=== PATIENT | female | born 1995 | race Caucasian/White ===

== ENCOUNTER 2016-02-27 22:59 | Emergency (ER) | payer BC | END 2016-02-28 01:05 | disposition left against medical advice (07) | LOC: JER 22:59 | DX: Z53.21 Procedure and treatment not carried out due to patient leaving prior to being seen by health care provider (principal) | CPT/HCPCS: 99281-25 ==

== ENCOUNTER 2016-02-28 00:05 | Emergency (ER) | payer BC ==
[2016-02-28 00:14] VITALS: BP 125/76; PULSE 84; TEMP 99.3; BMI 17.2
--- NOTE | 2016-02-28 00:32 | PDOC ---
History of Present Illness - General Chief Complaint: Chest Pain Stated Complaint: CHEST HEAVINESS/LIGHTHEADED History Source: Patient Exam Limitations: No Limitations - History of Present Illness Initial Comments: 02/28/16 01:50 Has had 7 doses of Bactrim DS and felt some chest heaviness followed by some dizziness..... felt this may be an allergic reaction. She is a healthy 20 yo who is taking the bactrim for a skin infection on her right arm. Timing/Duration: 1 week Severity: mild Modifying Factors: worse with: other Associated Symptoms: denies: denies symptoms Past History - Past Medical History Allergies/Adverse Reactions: Allergies Allergy/AdvReac Type Severity Reaction Status Date / Time No Known Allergies Allergy Verified 01/09/15 15:03 Home Medications: Ambulatory Orders Sulfamethoxazole/Trimethoprim [Bactrim Ds Tablet] 1 each PO BID 02/28/16 Other medical history: DENIES - Psycho/Social/Smoking Cessation Hx Anxiety: No Suicidal Ideation: No Smoking History: Never smoked Review of Systems - Review of Systems Able to Perform ROS?: Yes Is the patient limited Cypriot proficient: No Constitutional: Yes: See HPI HEENTM: No: Symptoms Reported Respiratory: Yes: Other (Chest Heaviness) Cardiac (ROS): Yes: See HPI ABD/GI: No: Symptoms Reported : No: Symptoms Reported Musculoskeletal: No: Symptoms Reported Integumentary: Yes: See HPI Neurological: No: Symptoms reported Psychiatric: Yes: Anxiety Endocrine: No: Symptoms Reported Hematologic/Lymphatic: No: Symptoms Reported All Other Systems: Reviewed and Negative *Physical Exam - Vital Signs Last Vital Signs Temp Pulse Resp BP Pulse Ox 99.3 F 84 18 125/76 100 02/28/16 00:10 02/28/16 00:10 02/28/16 00:10 02/28/16 00:10 02/28/16 00:10 - Physical Exam Comments: 02/28/16 01:53 Anxious 21 yo NAD General Appearance: No: Apparent Distress HEENT: positive: EOMI, QUINCY, Normal ENT Inspection Neck: positive: Supple. negative: Tender Respiratory/Chest: positive: Lungs Clear, Normal Breath Sounds. negative: Chest Tender Cardiovascular: positive: Regular Rhythm, Regular Rate. negative: Murmur Gastrointestinal/Abdominal: positive: Normal Bowel Sounds, Flat, Soft. 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 *DC/Admit/Observation/Transfer Diagnosis at time of Disposition: Anxiety, Chest heaviness - Discharge Dispostion Disposition: HOME Condition at time of disposition: Good Admit: No - Patient Instructions Printed Discharge Instructions: DI for Anxiety -- Adult Additional Instructions: Karyn- All of your tests are normal. I believe this may be a little bit of anxiety. Keep taking the bactrim til it is gone. Return to us if any problems. See your regular doctor next week. Delgado- / Marvin Floyd
[2016-02-28] MEDS ORDERED: SODIUM CHLORIDE 1,000 ML IV STA (00:34)
[2016-02-28 01:18] LABS: BASOPHIL 0.5 % (0-2.0); EOSINOPHIL 0.3 % (0-4.5); MCH 28.7 pg (25.7-33.7); MCHC 32.7 g/dl (32.0-36.0); MEAN CELL VOLUME 87.8 fl (80-96); MEAN PLT VOLUME 9.4 fl (7.5-11.1); NEUTROPHILS 85.2 % (42.8-82.8); PLATELET COUNT 310 K/MM3 (134-434)
[2016-02-28 01:44] LABS: INR 1.05 (0.82-1.09)
[2016-02-28 01:47] LABS: D-DIMER < 200 ng/ml (<200-235)
[2016-02-28 01:56] LABS: ALBUMIN 4.8 g/dl (3.4-5.0); ALK PHOS 73 U/L (45-117); ANION GAP 13 (8-16); BILIRUBIN,TOTAL 0.4 mg/dL (0.2-1.0); CALCIUM 9.5 mg/dL (8.5-10.1); CO2 24 mmol/L (21-32); CREATININE 1.1 mg/dL (0.55-1.02); GLUCOSE,RANDOM 91 mg/dL (74-106); SGOT/AST 15 U/L (15-37); SGPT/ALT 24 U/L (12-78); TOT PROT 7.9 g/dl (6.4-8.2)
[2016-02-28 02:10] LABS: TROPONIN I < 0.02 ng/ml (0.00-0.05)
--- NOTE | 2016-03-06 10:28 | EKG ---
Test Reason : Blood Pressure : / mmHG Vent. Rate : 091 BPM Atrial Rate : 091 BPM P-R Int : 142 ms QRS Dur : 072 ms QT Int : 348 ms P-R-T Axes : 038 049 045 degrees QTc Int : 428 ms POOR DATA QUALITY, INTERPRETATION MAY BE ADVERSELY AFFECTED NORMAL SINUS RHYTHM NORMAL ECG NO PREVIOUS ECGS AVAILABLE Confirmed by ROXANNE ARAUJO MD ([id number]) on 03/06/2016 10:27:50 AM Referred By: MD RIVAS Confirmed By:ROXANNE ARAUJO MD
== END 2016-02-28 02:41 | disposition home or self-care (01) ==
LOC: FER 00:05
PROC: 3E0337Z Introduction of Electrolytic and Water Balance Substance into Peripheral Vein, Percutaneous Approach (ICD-10-PCS; principal; 2016-02-28)
DX: F41.9 Anxiety disorder, unspecified (principal); R07.89 Other chest pain
CPT/HCPCS: 36415; 71020-TC; 80053; 82550; 84484; 84703; 85025; 85379; 85610; 93005; 99283-25

== ENCOUNTER 2016-08-20 15:49 | Emergency (ER) | payer BC ==
[2016-08-20 15:53] VITALS: BP 120/82; PULSE 105; TEMP 98.6; BMI 20.2
--- NOTE | 2016-08-20 16:33 | PDOC ---
History of Present Illness - History of Present Illness Initial Comments: 08/20/16 16:38 The patient is a 21 year old female, with a significant past medical history of spider bite (last year), who presents to the emergency department with spider bite she obtained today. The patient presents with the spider in a plastic bag. The patient denies any symptoms, but reports feeling burning immediately after receiving the bite to her right posterior lateral thigh. She states she immediately sprayed the area with benadryl spray. She denies swelling or numbness. She denies bruising. She denies any other symptoms. She denies fever, chills, nausea, vomit, diarrhea and constipation. She denies dysuria, frequency, urgency and hematuria. Allergies: NKDA <Cuca Milton - Last Filed: 08/20/16 16:38> <Shannan العلي - Last Filed: 08/20/16 17:02> - General Chief Complaint: Bite Stated Complaint: BIT MY SPIDER Time Seen by Provider: 08/20/16 16:14 Past History <Cuca Milton - Last Filed: 08/20/16 16:38> - Past Medical History Other medical history: none - Psycho/Social/Smoking Cessation Hx Anxiety: No Suicidal Ideation: No Smoking History: Never smoked Have you smoked in the past 12 months: No Information on smoking cessation initiated: No Hx Alcohol Use: No Drug/Substance Use Hx: No Substance Use Type: None <Shannan العلي - Last Filed: 08/20/16 17:02> - Past Medical History Allergies/Adverse Reactions: Allergies Allergy/AdvReac Type Severity Reaction Status Date / Time No Known Allergies Allergy Verified 08/20/16 15:50 Home Medications: Ambulatory Orders Hydrocortisone 2.5% Lotion [Hytone 2.5% Lotion -] 1 applic TP BID #1 bottle Review of Systems - Review of Systems Able to Perform ROS?: Yes Constitutional: No: Symptoms Reported HEENTM: No: Symptoms Reported Respiratory: No: Symptoms reported Cardiac (ROS): No: Symptoms Reported ABD/GI: No: Symptoms Reported : No: Symptoms Reported Musculoskeletal: No: Symptoms Reported Integumentary: Yes: Symptoms Reported, Other (insect bite/redness) Neurological: No: Symptoms reported Hematologic/Lymphatic: No: Symptoms Reported <Cuca Milton - Last Filed: 08/20/16 16:38> *Physical Exam - Vital Signs Last Vital Signs Temp Pulse Resp BP Pulse Ox 98.6 F 105 H 18 120/82 100 08/20/16 15:50 08/20/16 15:50 08/20/16 15:50 08/20/16 15:50 08/20/16 15:50 - Physical Exam Comments: 08/20/16 16:40 GENERAL: Well-appearing, well-nourished. No apparent distress. HEENT: Normocephalic, atraumatic. PERRL, EOM intact. EXTREMITIES: Normal ROM in all four extremities. No gross deformities. SKIN: (+) small insect bite to left posterior lateral thigh without induration, warmth , or tenderness. mild focal erythema to site of bite. Warm, dry. No rash NEUROLOGICAL: No focal neurological deficits. <Cuca Milton - Last Filed: 08/20/16 16:38> - Vital Signs Last Vital Signs Temp Pulse Resp BP Pulse Ox 98.6 F 105 H 18 120/82 100 08/20/16 15:50 08/20/16 15:50 08/20/16 15:50 08/20/16 15:50 08/20/16 15:50 <Shannan العلي - Last Filed: 08/20/16 17:02> Medical Decision Making - Medical Decision Making 08/20/16 16:57 A/P: A portion of this note was documented by the scribe services under my direction. I reviewed the details of the note within reason, and agree with the documentation with the following case summary and management plan written by me. Patient is a 21-year-old female with history of spider bite where she had a reaction was treated for cellulitis. Patient presents today bite to the right posterior leg. Patient came to emergency department with spider in the bag. Not a recluse spider. There is no localized reaction no localized IgE reaction. Patient was nervous because of past bite which required antibiotics. We'll DC patient home with monitoring, [place] area if any redness appears. Hydrocortisone cream if needed. To continue Benadryl spray topically every 6 hours for the next 3 days I discussed the physical exam findings, ancillary test results and final diagnoses with the patient. I answered all of the patient's questions. The patient was satisfied with the care received and felt comfortable with the discharge plan and treatment plan. The patient will call to arrange follow-up and will return to the Emergency Department with any new, persistent or worsening symptoms. <Shannan العلي - Last Filed: 08/20/16 17:02> *DC/Admit/Observation/Transfer - Attestations Scribe Attestion: 08/20/16 16:41 Documentation prepared by Cuca Milton, acting as medical resident for Emergency Dept, YOUTH COUNSELOR, Shannan العلي <Cuca Milton - Last Filed: 08/20/16 16:38> - Discharge Dispostion Admit: No <Shannan العلي - Last Filed: 08/20/16 17:02> Diagnosis at time of Disposition: Spider bite Qualifiers: Encounter type: initial encounter Injury intent: undetermined intent Qualified Code(s): T63.304A - Toxic effect of unspecified spider venom, undetermined, initial encounter - Discharge Dispostion Disposition: HOME Condition at time of disposition: Good - Prescriptions Prescriptions: Hydrocortisone 2.5% Lotion [Hytone 2.5% Lotion -] 1 applic TP BID #1 bottle - Patient Instructions Printed Discharge Instructions: How to Care for an Insect Bite or Sting Additional Instructions: Cool Compresses Benadryl locally to area every 6 hours for the next three days.
== END 2016-08-20 16:39 | disposition home or self-care (01) ==
LOC: JERFT 15:49
DX: T63.391A Toxic effect of venom of other spider, accidental (unintentional), initial encounter (principal)
CPT/HCPCS: 99281-25

== ENCOUNTER 2018-08-12 11:54 | Emergency (ER) | payer BC ==
[2018-08-12 12:03] VITALS: BMI 19.7
--- NOTE | 2018-08-12 12:27 | PDOC ---
History of Present Illness - General Chief Complaint: Nausea/Vomiting Stated Complaint: Nausea/Vomiting Time Seen by Provider: 08/12/18 12:22 History Source: Patient - History of Present Illness Timing/Duration: reports: getting worse Abdominal Pain Onset Location: reports: epigastric Past History - Past Medical History Allergies/Adverse Reactions: Allergies Allergy/AdvReac Type Severity Reaction Status Date / Time No Known Allergies Allergy Verified 08/20/16 15:50 Home Medications: Ambulatory Orders Hydrocortisone 2.5% Lotion [Hytone 2.5% Lotion -] 1 applic TP BID #1 bottle Ondansetron HCl [Zofran] 4 mg PO Q8H #12 tablet 08/12/18 - Suicide/Smoking/Psychosocial Hx Smoking History: Never smoked Have you smoked in the past 12 months: No Information on smoking cessation initiated: No Hx Alcohol Use: No Drug/Substance Use Hx: No Substance Use Type: None Review of Systems - Review of Systems Constitutional: Yes: Weakness. No: Chills, Fever Respiratory: No: Cough, Shortness of Breath Cardiac (ROS): No: Chest Pain ABD/GI: Yes: Nausea, Vomiting. No: Blood Streaked Bowels, Constipated, Diarrhea , Rectal Bleeding, Tarry Stools : No: Dysuria *Physical Exam - Vital Signs Last Vital Signs Temp Pulse Resp BP Pulse Ox 98.4 F 87 20 111/74 100 08/12/18 12:01 08/12/18 12:01 08/12/18 12:01 08/12/18 12:01 08/12/18 12:01 - Physical Exam General Appearance: Yes: Appropriately Dressed. No: Apparent Distress HEENT: positive: Normal Voice Neck: positive: Supple Respiratory/Chest: negative: Respiratory Distress Gastrointestinal/Abdominal: positive: Tender (minimal ttp to mid upper abd only) , Soft. negative: Normal Bowel Sounds, Distended, Guarding, Rebound Musculoskeletal: negative: CVA Tenderness Integumentary: positive: Dry, Warm Neurologic: positive: Fully Oriented, Alert, Normal Mood/Affect ED Treatment Course - LABORATORY CBC & Chemistry Diagram: 08/12/18 12:48 08/12/18 12:48 Medical Decision Making - Medical Decision Making 08/12/18 12:24 23 yo F, no sig hx, p/w recurrent n/v since 2am today. States she had ~10 e/o NB , NB vomiting and now feels weak. Reports vague mid upper abd pain. No diarrhea , f/c. Also reports generalized boy aches x 3 days. No sick contacts or recent travel see exam Possible viral illness, unlikely gastroenteritis (as no diarrhea), vs gastritis , unlikely appy as NT over mcburneys, r/o Stable and in NAD w/ minimal ttp to mid upper abd -zofran -IVF -labs -reassess 08/12/18 13:58 Pt reports feeling significantly better w/ meds and IVF. Abd benign on rpt exam. Has been able to beata po. Labs only remarkable for BG of 69. Will give dose of D50 and have pt eat. Will reassess 08/12/18 14:51 FS 173. Pt ok to be discharged. *DC/Admit/Observation/Transfer Diagnosis at time of Disposition: Hypoglycemia Nausea and vomiting Qualifiers: Vomiting type: unspecified Vomiting Intractability: non-intractable Qualified Code(s): R11.2 - Nausea with vomiting, unspecified - Discharge Dispostion Condition at time of disposition: Improved - Prescriptions Prescriptions: Ondansetron HCl [Zofran] 4 mg PO Q8H #12 tablet - Referrals Referrals: Ren Wilson MD [Primary Care Provider] - - Patient Instructions Printed Discharge Instructions: DI for Vomiting -- Adult Additional Instructions: The cause of your symptoms may be possibly viral or related to gastritis. Please rest, maintain adequate hydration and eat as tolerated. We have prescribed Zofran for you to take as needed for nausea. If symptoms worsen as discussed today, please return to the ER - Post Discharge Activity Forms/Work/School Notes: Back to School
[2018-08-12] MEDS ORDERED: ONDANSETRON 4 MG/2 ML VIAL IVPUSH ONE (12:36)
[2018-08-12] MEDS ORDERED: SODIUM CHLORIDE 1,000 ML IV STA (12:36)
[2018-08-12] MEDS ORDERED: ONDANSETRON 4 MG/2 ML VIAL ONE (12:41)
[2018-08-12 13:03] LABS: BASO % 0.6 % (0-2.0); EOS % 0.5 % (0-4.5); HEMATOCRIT 41.3 % (32.4-45.2); HEMOGLOBIN 14.1 GM/dL (10.7-15.3); LYMPH % 10.7 % (8-40); MCH 29.8 pg (25.7-33.7); MCHC 34.1 g/dl (32.0-36.0); MEAN CELL VOLUME 87.6 fl (80-96); MEAN PLT VOLUME 8.7 fl (7.5-11.1); MONO % 3.6 % (3.8-10.2); NEUT % 84.6 % (42.8-82.8); PLATELET COUNT 266 K/MM3 (134-434); RBC 4.72 M/mm3 (3.60-5.2); RDW 14.2 % (11.6-15.6); WHITE BLOOD COUNT 9.1 K/mm3 (4.0-10.0)
[2018-08-12 13:06] LABS: URINE APPEARANCE CLEAR; URINE BILIRUBIN NEGATIVE (NEGATIVE); URINE COLOR YELLOW; URINE GLUCOSE (UA) NEGATIVE (NEGATIVE); URINE KETONE 3+ (NEGATIVE); URINE LEUK ESTERASE NEGATIVE (NEGATIVE); URINE NITRITE NEGATIVE (NEGATIVE); URINE PROTEIN TRACE (NEGATIVE)
[2018-08-12 13:09] LABS: HCG,QUALITATIVE URINE Negative
[2018-08-12 13:33] LABS: ALBUMIN 4.8 g/dl (3.4-5.0); BILIRUBIN,TOTAL 0.7 mg/dL (0.2-1); BLOOD UREA NITROGEN 11.8 mg/dL (7-18); CALCIUM 9.4 mg/dL (8.5-10.1); CREATININE 0.7 mg/dL (0.55-1.3); POTASSIUM 4.2 mmol/L (3.5-5.1); TOT PROT 8.1 g/dl (6.4-8.2)
[2018-08-12] MEDS ORDERED: DEXTROSE 50%-WATER - 25 GM/50 ML VIAL IVPUSH ONE (13:59)
[2018-08-12 15:10] VITALS: BP 117/76; PULSE 73; TEMP 98.3
== END 2018-08-12 15:00 | disposition home or self-care (01) ==
LOC: JER 11:54
PROC: 3E033GC Introduction of Other Therapeutic Substance into Peripheral Vein, Percutaneous Approach (ICD-10-PCS; principal; 2018-08-12)
PROC: 3E0337Z Introduction of Electrolytic and Water Balance Substance into Peripheral Vein, Percutaneous Approach (ICD-10-PCS; 2018-08-12)
DX: R11.2 Nausea with vomiting, unspecified (principal); E16.2 Hypoglycemia, unspecified
CPT/HCPCS: 36415; 80053; 81003; 82962; 83690; 84703; 85025; 99282-25; J7030

== ENCOUNTER 2018-11-25 10:01 | Day surgery (SDC) | payer BC ==
[2018-11-13 15:09] VITALS: BMI 20.5
[2018-11-25 10:28] VITALS: TEMP 98.7
[2018-11-25 13:58] VITALS: BP 99/61; PULSE 65
== END 2018-11-25 14:00 | disposition home or self-care (01) ==
LOC: FASU-ENDO 10:01
PROVIDERS: ATTEND Internal Medicine Gastroenterology
PROC: 0DJD8ZZ Inspection of Lower Intestinal Tract, Via Natural or Artificial Opening Endoscopic (ICD-10-PCS; principal; 2018-11-25 12:50)
DX: K92.2 Gastrointestinal hemorrhage, unspecified (principal); K64.1 Second degree hemorrhoids
CPT/HCPCS: 84703

== ENCOUNTER 2020-01-11 15:10 | Emergency (ER) | payer BC | END 2020-01-11 15:28 | disposition home or self-care (01) | LOC: JVIRT 15:10 | DX: Z03.818 Encounter for observation for suspected exposure to other biological agents ruled out (principal) | CPT/HCPCS: C9803; Q3014-GT; U0003 ==

== ENCOUNTER 2023-11-20 04:13 | Day surgery (SDC) | payer OTHER ==
[2023-11-17 14:40] VITALS: BMI 27.4
[2023-11-20] MEDS ORDERED: LIDOCAINE HCL/PF 1% SDV 5ML VIAL ONE (07:13)
[2023-11-20] MEDS ORDERED: BUPIVACAINE HCL/PF 0.75% 10 ML VIAL ONE (07:13)
[2023-11-20 08:58] VITALS: PULSE 72
[2023-11-20] MEDS: LIDOCAINE HCL 1% PRESERVATIVE FREE - 30ML VIAL IJ ONE (11:16)
[2023-11-20] MEDS: BUPIVACAINE HCL/PF 0.75% 10 ML VIAL NR ONE ×2 (11:18→11:19)
[2023-11-20 11:46] VITALS: TEMP 97
[2023-11-20 11:55] VITALS: BP 132/70; RESP 20
[2023-11-20] MEDS ORDERED: ACETAMINOPHEN 500 MG TABLET (FP) PO PRN (21:24)
== END 2023-11-20 11:55 | disposition home or self-care (01) ==
LOC: JASU-SURG 04:13
PROVIDERS: ATTEND Pain Medicine Pain Medicine
PROC: 3E0T3BZ Introduction of Anesthetic Agent into Peripheral Nerves and Plexi, Percutaneous Approach (ICD-10-PCS; principal; 2023-11-20 10:15)
DX: M47.816 Spondylosis without myelopathy or radiculopathy, lumbar region (principal)
CPT/HCPCS: 76000-TC-FY; 81025

== ENCOUNTER 2024-02-26 04:14 | Day surgery (SDC) | payer OTHER ==
[2024-02-20 10:42] VITALS: BMI 27.4
[2024-02-26] MEDS ORDERED: ACETAMINOPHEN 500 MG TABLET (FP) PO PRN (09:24)
[2024-02-26] MEDS: BUPIVACAINE HCL/PF 0.75% 10 ML VIAL NR ONE ×3 (10:22→10:27)
[2024-02-26] MEDS: LIDOCAINE HCL 1% PRESERVATIVE FREE - 30ML VIAL IJ ONE ×3 (10:22)
[2024-02-26 10:51] VITALS: BP 116/75; PULSE 78; RESP 16; TEMP 98.7
== END 2024-02-26 10:45 | disposition home or self-care (01) ==
LOC: JASU-SURG 04:14
PROVIDERS: ATTEND Pain Medicine Pain Medicine
PROC: 3E0T33Z Introduction of Anti-inflammatory into Peripheral Nerves and Plexi, Percutaneous Approach (ICD-10-PCS; 2024-02-26)
PROC: 3E0T3BZ Introduction of Anesthetic Agent into Peripheral Nerves and Plexi, Percutaneous Approach (ICD-10-PCS; principal; 2024-02-26 13:45)
DX: M47.816 Spondylosis without myelopathy or radiculopathy, lumbar region (principal)
CPT/HCPCS: 76000-TC-FY; 81025